=== PATIENT | female | born 1995 | race African-American/Black ===

== ENCOUNTER 2019-12-30 01:55 | Emergency (ER) | payer MEDICAID ==
[~2019-12-30] VITALS: Ht 160 cm; Wt 64.0 kg
[2019-12-30] MEDS ORDERED: LIDOCAINE HCL 1%/EPI 1:200,000 30 ML VIAL MC ONE (03:00)
[2019-12-30] MEDS ORDERED: LIDOCAINE HCL/EPINEPHRINE 1%-EPI 1:100,000 20 ML VIAL INFIL ONE (03:15)
[2019-12-30 04:01] VITALS: BP 124/70
== END 2019-12-30 04:04 | disposition home or self-care (01) ==
LOC: ER 01:55
DX: S81.012A Laceration without foreign body, left knee, initial encounter (principal); Z88.0 Allergy status to penicillin; W25.XXXA Contact with sharp glass, initial encounter; Y93.89 Activity, other specified; Y92.89 Other specified places as the place of occurrence of the external cause; Y99.8 Other external cause status
CPT/HCPCS: 12001; 99283; J3490; 99282